=== PATIENT | male | born 1960 | race Caucasian/White ===

== ENCOUNTER → 2016-08-22 | Outpatient (CLI) | payer MEDICARE, OTHER ==
--- NOTE | 2016-08-22 17:44 | PN ---
Renato is coming in for a CPAP compliancy check. He is benefiting very much from his CPAP machine. He is wearing it every night without any interruption. He has severe ELIEL with an AHI of 94. Currently he is on CPAP pressure of 13. His average CPAP use over the past 30 days, has been 8.5 hours. He has been using the CPAP 30 out of 30 days for the past 30 days and his AHI is down to 0.9 with leak factor of 22 L/min. He is waking up alert and awake during the day. He is using a [employer] FX nasal pillow is looking for alternatives. His weight has been stable. BP is 167/90, pulse 82, respirations 16, temperature 97.8. Weight is 260. GENERAL APPEARANCE: Obese, calm, comfortable. HEENT: Mallampati class IV. No goiter. No neck masses. LUNGS: Diminished; otherwise clear. Heart sounds are regular rate and rhythm. Normal S1, S2. ABDOMEN: Soft, nontender. No organomegaly. EXTREMITIES: No edema. No cyanosis, or clubbing. IMPRESSION: 1. Severe symptomatic obstructive sleep apnea with an AHI of 90. The patient is very compliant. He is benefiting from CPAP therapy. 2. Morbid obesity; body mass index of 42. 3. Chronic hypersomnia, improved. 4. Diabetes. 5. Hypertension. 6. Hyperlipidemia. 7. Cerebrovascular accident. PLAN: 1. Continue CPAP at the same level of pressure. 2. Patient is compliant. 3. Encourage weight loss. 4. See me back in a year's time in follow-up, earlier if needed.
== END | disposition home or self-care (01) ==
LOC: SLEEP 13:54
PROVIDERS: ATTEND Internal Medicine Critical Care Medicine
DX: G47.33 Obstructive sleep apnea (adult) (pediatric) (principal); E66.01 Morbid (severe) obesity due to excess calories; Z68.41 Body mass index [BMI] 40.0-44.9, adult; G47.13 Recurrent hypersomnia; E11.9 Type 2 diabetes mellitus without complications; I10 Essential (primary) hypertension; E78.5 Hyperlipidemia, unspecified; I63.9 Cerebral infarction, unspecified

== ENCOUNTER 2016-10-16 19:59 | Inpatient (IN) | payer MEDICARE, OTHER ==
[~2016-10-16 19:59] MED LIST: EPINEPHrine 10 ML SYRINGE (0.1 MG/ML) ONE
[2016-10-16] MEDS ORDERED: diphenhydrAMINE 50 MG/ML 1 ML VIAL IVP PRN (20:02)
[2016-10-16] MEDS ORDERED: FAMOTIDINE 20 MG/2 ML VIAL IV STA (20:02)
[2016-10-16] MEDS ORDERED: diphenhydrAMINE 50 MG/ML 1 ML VIAL IVP STA (20:02)
[2016-10-16] MEDS ORDERED: EPINEPHrine 2 MG in DEXTROSE 5% IN WATER 250 ML IV ONE ×2 (20:02)
[2016-10-16] MEDS ORDERED: SODIUM CHLORIDE 0.9% 1,000 ML IV STA ×3 (20:02)
[2016-10-16] MEDS ORDERED: methylPREDNISolone SOD SUCCI 125 MG/2 ML VIAL IV STA (20:02)
[2016-10-16 20:08] VITALS: RESP 14
--- NOTE | 2016-10-16 20:19 | ED ---
General Adult HPI - General Chief complaint: Cardiac Arrest/CPR Stated complaint: Cardiac Arrest Time Seen by Provider: 10/16/16 20:01 Source: EMS, RN notes reviewed, old records reviewed Mode of arrival: EMS - History of Present Illness Initial comments: This is a 56 male to the ED who complains anaphylaxis, patient patient was stung by a bee allegedly called EMS after giving him some epinephrine in the skin a patient's house, patient unable to give history secondary to being intubated for his cardiopulmonary arrest, upon arrival EMS to patient to have cardiac arrest laying on the ground in his house with minimal respiratory effort , they did intubate the patient at the time started an IV and were able to get patient intubated. They did start again continue CPR gave epinephrine through the IV and patient did have return of circulation. Upon arrival to the emergency room patient is switched over to the bed and again has lost his pulse ACOS protocol will be resumed - Related Data Home Medications Medication Instructions Recorded Confirmed Aspirin 325 mg PO DAILY 11/12/15 03/13/16 Artificial Tears-Hypromellose 1 drop BOTH EYES BID PRN 03/13/16 03/13/16 [Artificial Tear Drops] Ketotifen 0.025% Ophth Soln 1 drop BOTH EYES BID 03/13/16 03/13/16 [Zaditor] Multivitamins, Thera [Multivitamin] 1 tab PO DAILY 03/13/16 03/13/16 Niacin 500 mg PO DAILY 03/13/16 03/13/16 [place]-3 Fatty Acids/Fish Oil [Fish 1 cap PO DAILY 03/13/16 03/13/16 Oil 1,000 mg Softgel] metFORMIN HCL [Glucophage] 500 mg PO AC-BID 03/13/16 03/13/16 Previous Rx's Medication Instructions Recorded EPINEPHrine (Auto Inject) [Epipen] 0.3 mg IM ONCE PRN #1 syringe 11/12/15 EPINEPHrine [Epipen 2-Justin] 0.3 mg IJ ONCE PRN #1 auto.injct 03/13/16 predniSONE 20 mg PO BID #10 tab 03/13/16 Allergies Allergy/AdvReac Type Severity Reaction Status Date / Time anthrax vaccine Allergy Anaphylaxis Verified 10/16/16 21:41 diazepam [From Valium] Allergy Anaphylaxis Verified 10/16/16 21:41 iodine Allergy Anaphylaxis Verified 10/16/16 21:41 shellfish derived [Shellfish] Allergy Anaphylaxis Verified 10/16/16 21:41 venom-honey bee Allergy Anaphylaxis Verified 10/16/16 21:41 [bee venom (honey bee)] ANTS Allergy Unknown Uncoded 10/16/16 21:41 Review of Systems ROS Statement: Those systems with pertinent positive or pertinent negative responses have been documented in the HPI. ROS Other: All systems not noted in ROS Statement are negative. Past Medical History Past Medical History: CVA/TIA History of Any Multi-Drug Resistant Organisms: None Reported Past Surgical History: Back Surgery Past Psychological History: No Psychological Hx Reported Smoking Status: Never smoker Past Alcohol Use History: None Reported Past Drug Use History: None Reported General Exam Limitations: altered mental status, physical limitation General appearance: obtunded, in distress Head exam: Present: atraumatic, normocephalic, normal inspection Eye exam: Present: normal appearance, other (dilated). Absent: scleral icterus , conjunctival injection, periorbital swelling ENT exam: Present: normal exam, mucous membranes moist Neck exam: Present: normal inspection. Absent: tenderness, meningismus, lymphadenopathy Respiratory exam: Present: respiratory distress (apnea), wheezes, decreased breath sounds. Absent: normal lung sounds bilaterally, rales, rhonchi Cardiovascular Exam: Present: normal rhythm, tachycardia, normal heart sounds. Absent: systolic murmur, diastolic murmur, rubs, gallop, clicks GI/Abdominal exam: Present: soft, normal bowel sounds. Absent: distended, tenderness, guarding, rebound, rigid Extremities exam: Present: normal inspection, full ROM, normal capillary refill. Absent: tenderness, pedal edema, joint swelling, calf tenderness Back exam: Present: normal inspection Skin exam: Present: warm, dry, intact, normal color. Absent: rash Course Vital Signs 10/16/16 10/16/16 10/16/16 20:01 20:02 21:22 Pulse Rate 49 L 94 96 Respiratory 0 L 14 14 Rate Blood Pressure 76/37 137/81 102/63 O2 Sat by Pulse 85 L 93 L 98 Oximetry - Reevaluation(s) Reevaluation #1: 10/16/16 20:25 able to have return of spontaneous circulation despite initial loss of pulse Reevaluation #2: spoke with family at length greater than 15 minutes, spoke about patients grave condition, questions at this point answered, Reevaluation #3: spoke with ICU, cardiology regarding EKG, regarding patient condition, they are aware EKG Findings - EKG Comments: EKG Findings:: EKG shows sinus tachycardia rate 111, ME 176, QRS 84, QTC 46, significant ST abnormality ST depression Procedures - Central Line Placement Right IJ Consent Obtained: verbal consent Time Out Performed: Yes Patient Placed on Monitor/Pulse Ox: Yes MD Prep: mask, gown, gloves Central Line Prep: Chlorhexidine scrub, sterile drapes applied Local Anesthesia Used: Lidocaine 1% Ultrasound Used for Placement: Yes Central Line Lumen Inserted: triple Bloods Obtained for Lab: Yes Central Line Position: good blood return, all ports aspirated, flushed, capped Dressing Applied: Tegaderm Post Procedure X-Ray: tip of catheter in good position Patient Tolerated Procedure: well Complications: none Medical Decision Making - Medical Decision Making 56-year-old here for evaluation regarding a stinging, burning by EMS unresponsive. CPR performed after intubation. Successful return of spontaneous circulation after prolonged rounds of ACLS, patient started on epinephrine drip given antihistamines and steroids, admitted to ICU - Lab Data Result diagrams: 10/16/16 20:02 10/16/16 20:02 Lab Results 10/16/16 10/16/16 10/16/16 Range/Units 20:02 20:02 20:02 WBC 21.9 H (3.8-10.6) k/uL RBC 6.39 H (4.30-5.90) m/uL Hgb 19.4 H (13.0-17.5) gm/dL Hct 58.9 H (39.0-53.0) % MCV 92.2 (80.0-100.0) fL MCH 30.3 (25.0-35.0) pg MCHC 32.9 (31.0-37.0) g/dL RDW 13.6 (11.5-15.5) % Plt Count 166 (150-450) k/uL Neutrophils % 45 % Lymphocytes % 47 % Monocytes % 3 % Eosinophils % 1 % Basophils % 1 % Neutrophils # 9.8 H (1.3-7.7) k/uL Lymphocytes # 10.3 H (1.0-4.8) k/uL Monocytes # 0.7 (0-1.0) k/uL Eosinophils # 0.2 (0-0.7) k/uL Basophils # 0.3 H (0-0.2) k/uL Sodium 144 (137-145) mmol/L Potassium 2.9 L* (3.5-5.1) mmol/L Chloride 106 (98-107) mmol/L Carbon Dioxide 15 L (22-30) mmol/L Anion Gap 23 mmol/L BUN 15 (9-20) mg/dL Creatinine 1.05 (0.66-1.25) mg/dL Est GFR (MDRD) Af Amer >60 (>60 ml/min/1.73 sqM) Est GFR (MDRD) Non-Af >60 (>60 ml/min/1.73 sqM) Glucose 153 H (74-99) mg/dL Calcium 9.2 (8.4-10.2) mg/dL Phosphorus 10.6 H* (2.5-4.5) mg/dL Magnesium 2.2 (1.6-2.3) mg/dL Total Bilirubin 1.2 (0.2-1.3) mg/dL AST 124 H (17-59) U/L ALT 80 H (21-72) U/L Alkaline Phosphatase 158 H (38-126) U/L Total Creatine Kinase 236 H (55-170) U/L CK-MB (CK-2) 4.6 H* (0.0-2.4) ng/mL CK-MB (CK-2) Rel Index 1.9 Troponin I 0.028 (0.000-0.034) ng/mL Total Protein 6.4 (6.3-8.2) g/dL Albumin 3.7 (3.5-5.0) g/dL Urine Color Urine Appearance (Clear) Urine pH (5.0-8.0) Ur Specific [place] (1.001-1.035) Urine Protein (Negative) Urine Glucose (UA) (Negative) Urine Ketones (Negative) Urine Blood (Negative) Urine Nitrite (Negative) Urine Bilirubin (Negative) Urine Urobilinogen (<2.0) mg/dL Ur Leukocyte Esterase (Negative) Urine RBC (0-5) /hpf Ur Squamous Epith Cells (0-4) /hpf Urine Yeast (Budding) (None) /hpf 10/16/16 Range/Units 20:20 WBC (3.8-10.6) k/uL RBC (4.30-5.90) m/uL Hgb (13.0-17.5) gm/dL Hct (39.0-53.0) % MCV (80.0-100.0) fL MCH (25.0-35.0) pg MCHC (31.0-37.0) g/dL RDW (11.5-15.5) % Plt Count (150-450) k/uL Neutrophils % % Lymphocytes % % Monocytes % % Eosinophils % % Basophils % % Neutrophils # (1.3-7.7) k/uL Lymphocytes # (1.0-4.8) k/uL Monocytes # (0-1.0) k/uL Eosinophils # (0-0.7) k/uL Basophils # (0-0.2) k/uL Sodium (137-145) mmol/L Potassium (3.5-5.1) mmol/L Chloride (98-107) mmol/L Carbon Dioxide (22-30) mmol/L Anion Gap mmol/L BUN (9-20) mg/dL Creatinine (0.66-1.25) mg/dL Est GFR (MDRD) Af Amer (>60 ml/min/1.73 sqM) Est GFR (MDRD) Non-Af (>60 ml/min/1.73 sqM) Glucose (74-99) mg/dL Calcium (8.4-10.2) mg/dL Phosphorus (2.5-4.5) mg/dL Magnesium (1.6-2.3) mg/dL Total Bilirubin (0.2-1.3) mg/dL AST (17-59) U/L ALT (21-72) U/L Alkaline Phosphatase (38-126) U/L Total Creatine Kinase (55-170) U/L CK-MB (CK-2) (0.0-2.4) ng/mL CK-MB (CK-2) Rel Index Troponin I (0.000-0.034) ng/mL Total Protein (6.3-8.2) g/dL Albumin (3.5-5.0) g/dL Urine Color Yellow Urine Appearance Cloudy (Clear) Urine pH 5.5 (5.0-8.0) Ur Specific [place] 1.032 (1.001-1.035) Urine Protein 1+ H (Negative) Urine Glucose (UA) 3+ H (Negative) Urine Ketones Trace H (Negative) Urine Blood Small H (Negative) Urine Nitrite Negative (Negative) Urine Bilirubin Negative (Negative) Urine Urobilinogen <2.0 (<2.0) mg/dL Ur Leukocyte Esterase Small H (Negative) Urine RBC 8 H (0-5) /hpf Ur Squamous Epith Cells <1 (0-4) /hpf Urine Yeast (Budding) Few H (None) /hpf - Radiology Data Radiology results: report reviewed (Chest x-ray is negative for acute disease initial good ET tube placement. Placement of central line), image reviewed Critical Care Time Critical Care Time: Yes Total Critical Care Time: 31 Disposition Clinical Impression: Cardiac arrest, Anaphylaxis, Cardiopulmonary arrest Disposition: ADMITTED IP TO THIS HOSP Condition: Critical
[2016-10-16 20:24] LABS: Basophils # (A) 0.3 k/uL (0-0.2); Basophils % (A) 1 %; CHCM 32.7; Eosinophils # (A) 0.2 k/uL (0-0.7); Eosinophils % (A) 1 %; HCT 58.9 % (39.0-53.0); HDW 2.82; HGB 19.4 gm/dL (13.0-17.5); Luc # (Auto) 0.65; Luc % (Auto) 3; Lymphocytes # (A) 10.3 k/uL (1.0-4.8); Lymphocytes % (A) 47 %; MCH 30.3 pg (25.0-35.0); MCHC 32.9 g/dL (31.0-37.0); MCV 92.2 fL (80.0-100.0); Mean Platelet Volume 10.2; Monocytes # (A) 0.7 k/uL (0-1.0); Monocytes % (A) 3 %; Neutrophils # (A) 9.8 k/uL (1.3-7.7); Neutrophils % (A) 45 %; RBC 6.39 m/uL (4.30-5.90); RDW 13.6 % (11.5-15.5); WBC 21.9 k/uL (3.8-10.6); WBC (Perox) 22.72
[2016-10-16 20:35] LABS: ALT 80 U/L (21-72); AST 124 U/L (17-59); Alkaline Phosphatase 158 U/L (38-126); Anion Gap 23 mmol/L; Blood Urea Nitrogen 15 mg/dL (9-20); Calcium 9.2 mg/dL (8.4-10.2); Carbon Dioxide 15 mmol/L (22-30); Chloride 106 mmol/L (98-107); Glucose 153 mg/dL (74-99); Magnesium 2.2 mg/dL (1.6-2.3); Non-African American GFR(MDRD) >60 (>60 ml/min/1.73 sqM); Sodium 144 mmol/L (137-145); Total Bilirubin 1.2 mg/dL (0.2-1.3); Total Protein 6.4 g/dL (6.3-8.2)
[2016-10-16 20:37] LABS: Phosphorous 10.6 mg/dL (2.5-4.5); Potassium 2.9 mmol/L (3.5-5.1)
[2016-10-16] MEDS ORDERED: NALOXONE 0.4 MG/ML 1 ML VIAL IV PRN (20:43)
[2016-10-16] MEDS ORDERED: DEXTROSE 5%-0.45% NACL 1,000 ML IV SCH (20:45)
[2016-10-16 20:52] LABS: Appearance,Urine Cloudy (Clear); Bilirubin,Urine Negative (Negative); Glucose,Urine (UA) 3+ (Negative); Ketones,Urine Trace (Negative); Leukocyte Esterase,Urine Small (Negative); Nitrite,Urine Negative (Negative); PH, Urine 5.5 (5.0-8.0); Particle Count 4869; Protein,Urine 1+ (Negative); RBC,Urine 8 /hpf (0-5); Specific Gravity,Urine 1.032 (1.001-1.035); Squamous Epithelial Cell,Urine <1 /hpf (0-4); UA Billing (MACRO vs. MICRO) MICRO; Urobilinogen,Urine <2.0 mg/dL (<2.0)
--- NOTE | 2016-10-16 20:54 | XR ---
EXAMINATION TYPE: XR chest 1V portable DATE OF EXAM: 10/16/2016 COMPARISON: August 02, 2011 HISTORY: Cardiac arrest TECHNIQUE: AP portable supine FINDINGS: ET tube tip superimposed over the mid trachea. NG tube present, coursing over the thoracic esophagus and having its tip and port superimposed over t he gastric fundus. Right IJ catheter tip superimposed over the cavoatrial junction. EKG leads and transcutaneous pacemak er noted. There is no evident pneumothorax on the supine radiograph. Relatively low lung inflation at the moment of x-ray exposure. Follow-up radiography will clarify the lung parenchymal examination. At present, the lungs appear predominately clear. There is no evident pulmonary edema. No definite focal pulmonary process, although the retrocardiac lung can be further c haracterized with follow-up radiography. No sizable pleural effusions, but nonspecific mild left-sided pleural thickening is noted. Cardiac silhouette is not enlarged. Mediastinal silhouette and soft tissues and skeletal structures a re unremarkable. IMPRESSION: NO DEFINITE ACUTE PULMONARY/PLEURAL PROCESS.
[2016-10-16 21:07] LABS: Troponin I 0.028 ng/mL (0.000-0.034)
[2016-10-16 21:15] LABS: Creatine Kinase MB 4.6 ng/mL (0.0-2.4)
[2016-10-16 21:23] VITALS: BP 102/63; PULSE 96
[2016-10-16 21:30] LABS: INR 4.1 (<1.1)
[2016-10-16 21:50] LABS: ABG Base Excess -19.1 mmol/L; ABG HCO3 10 mmol/L (21-25); ABG PCO2 41 mmHg (35-45); ABG PH 7.01 (7.35-7.45); ABG PO2 191 mmHg (83-108); ABG TCO2 11 mmol/L (19-24)
[2016-10-16] MEDS ORDERED: FAMOTIDINE 20 MG/2 ML VIAL IV SCH (22:00)
[2016-10-16] MEDS ORDERED: POTASSIUM CHLORIDE 20 MEQ, LIDOCAINE 2% INJ 20 MG in SODIUM CHLORIDE 0.9% 100 ML IVPB SCH (22:00)
--- NOTE | 2016-10-16 23:21 | XR ---
EXAM: XR Chest, 1 View CLINICAL HISTORY: Reason: dyspnea TECHNIQUE: Frontal view of the chest. COMPARISON: 3 hours prior. FINDINGS: Lungs: Extensive right lung hazy alveolar opacities and interstitial thickening which may represent pulmonary edema, new compared to prior. Pleural space: Unremarkable. No pneumothorax. Heart: Right IJ line with the tip in the cavoatrial junction. Mediastinum: Unremarkable. Bones/joints: Unremarkable. Tubes, lines and devices: Endotracheal tube 3.1 cm above the ancelmo. OG tube tip in the fundus of the stomach. Other findings: Overlying pads and wires seen. IMPRESSION: 1. Extensive right lung hazy alveolar opacities and interstitial thickening which may represent pulmonary edema, new compared to prior. 2. Right IJ line with the tip in the cavoatrial junction.
[2016-10-17] MEDS ORDERED: methylPREDNISolone SOD SUCCI 125 MG/2 ML VIAL IV SCH
[2016-10-17] MEDS ORDERED: ENOXAPARIN 40 MG/0.4 ML SYRINGE SQ SCH (09:00)
[2016-10-17 14:18] LABS: Prothrombin Time 40.7 sec (9.0-12.0)
--- NOTE | 2016-10-27 14:34 | HP ---
DATE OF ADMISSION: 10/16/2016 DATE PATIENT : 10/16/2016 FINAL DIAGNOSES: Acute severe anaphylaxis leading to cardiac arrest. HOSPITAL COURSE: This patient was not seen and examined by me, came through ER with cardiac arrest and severe anaphylaxis, was treated. Dr. Avila was called from critical care. Patient went to the ICU and arrested again and . For more details, refer to the ER note.
== END 2016-10-16 23:16 | disposition expired | DRG 916 ==
LOC: EC 19:59 → 6ICU 20:24
PROVIDERS: ADMIT Hospitalist; ATTEND Hospitalist
PROC: 5A1935Z Respiratory Ventilation, Less than 24 Consecutive Hours (ICD-10-PCS; principal; 2016-10-16)
PROC: 0D9670Z Drainage of Stomach with Drainage Device, Via Natural or Artificial Opening (ICD-10-PCS; principal; 2016-10-16)
PROC: 5A12012 Performance of Cardiac Output, Single, Manual (ICD-10-PCS; 2016-10-16)
PROC: 02HV33Z Insertion of Infusion Device into Superior Vena Cava, Percutaneous Approach (ICD-10-PCS; 2016-10-16)
PROC: B548ZZA Ultrasonography of Superior Vena Cava, Guidance (ICD-10-PCS; 2016-10-16)
DX: T78.2XXA Anaphylactic shock, unspecified, initial encounter (principal); I46.8 Cardiac arrest due to other underlying condition; T63.441A Toxic effect of venom of bees, accidental (unintentional), initial encounter; Z86.73 Personal history of transient ischemic attack (TIA), and cerebral infarction without residual deficits; Z88.7 Allergy status to serum and vaccine; Z88.8 Allergy status to other drugs, medicaments and biological substances; Z91.030 Bee allergy status; Z91.041 Radiographic dye allergy status; Z91.013 Allergy to seafood; Z79.84 Long term (current) use of oral hypoglycemic drugs; Z79.82 Long term (current) use of aspirin; Z79.52 Long term (current) use of systemic steroids; Z79.899 Other long term (current) drug therapy
CPT/HCPCS: 36556; 36600; 71010; 80053; 81001; 82550; 82553; 82805; 83605; 83735; 84100; 84484; 85025; 85610; 85730; 87086; 92950; 93005; 94002; 96361; 96374; 96375; 99291